=== PATIENT | male | born 1990 | race African-American/Black ===

== ENCOUNTER 2016-09-18 17:01 | Emergency (ER) | payer SELFPAY ==
[~2016-09-18] VITALS: Ht 177.8 cm; Wt 79.0 kg
[2016-09-18] MEDS ORDERED: IBUPROFEN 100MG/5ML UDC PO ONE (18:30)
[2016-09-18 20:54] VITALS: BP 139/69
== END 2016-09-18 20:55 | disposition home or self-care (01) ==
LOC: ER 19:44
DX: S83.92XA Sprain of unspecified site of left knee, initial encounter (principal); Z88.8 Allergy status to other drugs, medicaments and biological substances; V00.131A Fall from skateboard, initial encounter; Y93.51 Activity, roller skating (inline) and skateboarding; Y92.89 Other specified places as the place of occurrence of the external cause; Y99.8 Other external cause status
CPT/HCPCS: 73562; 99284